=== PATIENT | male | born 1955 | race Caucasian/White ===

== ENCOUNTER 2018-07-15 12:07 | Emergency (ER) | payer MEDICAID ==
[~2018-07-15] VITALS: Ht 167.6 cm; Wt 73.5 kg
[~2018-07-15 12:07] MED LIST: ECO81 PO; METFORMIN500 M1 PO; SYN25 PO; ZOC20 PO
[2018-07-15 12:11] VITALS: Ht 167.6 cm; Wt 73.5 kg
[2018-07-15 12:55] LABS: BASOPHIL % 0.4 % (0-2); PLATELET COUNT 165 x10^3mcL (130-400)
[2018-07-15 13:04] LABS: CALCIUM 8.1 mg/dL (8.5-10.1); CARBON DIOXIDE 24.6 mmol/L (21-32); CHLORIDE SERUM 102 mmol/L (98-107); CREATININE SERUM 0.9 mg/dL (0.7-1.3); GFR1 > 60 mL/min; GLUCOSE SERUM 340 mg/dL (74-106); POTASSIUM SERUM 3.7 mmol/L (3.5-5.1); SODIUM SERUM 138 mmol/L (136-145)
[2018-07-15 13:12] LABS: ALKALINE PHOSPHATASE 64 U/L (46-116); ALT/SGPT 30 U/L (16-63); AST/SGOT 18 U/L (15-37); BILIRUBIN TOTAL 0.53 mg/dL (0.20-1.00); TOTAL PROTEIN, SERUM 6.8 g/dL (6.4-8.2)
[2018-07-15 13:14] LABS: ALBUMIN 2.9 g/dL (3.4-5.0); C REACTIVE PROTEIN 14.5 mg/dL (<=0.9)
[2018-07-15 13:21] LABS: microscopic required? YES; urine erythrocyte 3+ (NEGATIVE)
[2018-07-15 14:05] LABS: ERYTHROCYTE SED RATE 35 mm/hr (0-20)
[2018-07-15 14:14] VITALS: BP 146/86
== END 2018-07-15 14:13 | disposition home or self-care (01) ==
LOC: ED 12:07
PROVIDERS: Specialist
DX: B34.9 Viral infection, unspecified (principal); M79.1 Myalgia; Z90.89 Acquired absence of other organs
CPT/HCPCS: 82962; 87804; J1885; J2405; J7030

== ENCOUNTER 2018-07-16 20:03 | Inpatient (IN) | payer MEDICAID ==
[~2018-07-16] VITALS: Ht 162.6 cm; Wt 74.1 kg
[2018-07-16 20:11] VITALS: Ht 162.6 cm; Wt 74.1 kg
[2018-07-16 22:39] LABS: UA SPECIFIC GRAVITY 1.015 (1.005-1.035); microscopic required? YES; urine erythrocyte 3+ (NEGATIVE)
[2018-07-16 22:42] LABS: CALCIUM 8.2 mg/dL (8.5-10.1); CARBON DIOXIDE 21.3 mmol/L (21-32); CHLORIDE SERUM 98 mmol/L (98-107); GFR1 > 60 mL/min; GLUCOSE SERUM 209 mg/dL (74-106); POTASSIUM SERUM 3.9 mmol/L (3.5-5.1); SODIUM SERUM 133 mmol/L (136-145)
[2018-07-16 22:52] LABS: BASOPHIL % 0.3 % (0-2); PLATELET COUNT 200 x10^3mcL (130-400); RED CELL DISTRIBUTION WIDTH 13.1 % (11.5-14.5)
[2018-07-16 22:55] LABS: ALKALINE PHOSPHATASE 60 U/L (46-116); ALT/SGPT 34 U/L (16-63); AST/SGOT 29 U/L (15-37); BILIRUBIN TOTAL 0.57 mg/dL (0.20-1.00); FREE T4 1.44 ng/dL (0.76-1.46); TOTAL PROTEIN, SERUM 7.2 g/dL (6.4-8.2)
[2018-07-16 22:58] LABS: ALBUMIN 2.9 g/dL (3.4-5.0)
[2018-07-16 23:00] LABS: AMPHETAMINE QUAL UR NONE DETECTED (See below)
[2018-07-17] MEDS ORDERED: IBUPROFEN400 MG (01:09)
[2018-07-17] MEDS ORDERED: SINEMET 25-1001 TAB (01:09)
[2018-07-17 01:21] LABS: MAGNESIUM 1.8 mg/dL (1.8-2.4)
[2018-07-17 01:22] LABS: CHOLESTEROL/HDL RATIO 2.8
[2018-07-17 01:41] VITALS: BP 128/89
[2018-07-17 04:28] LABS: BASOPHIL % 0.5 % (0-2); PLATELET COUNT 168 x10^3mcL (130-400); RED CELL DISTRIBUTION WIDTH 13.3 % (11.5-14.5)
[2018-07-17 04:40] LABS: CALCIUM 7.8 mg/dL (8.5-10.1); CHLORIDE SERUM 104 mmol/L (98-107); CREATININE SERUM 0.8 mg/dL (0.7-1.3); GFR1 > 60 mL/min; GLUCOSE SERUM 192 mg/dL (74-106); POTASSIUM SERUM 4.1 mmol/L (3.5-5.1); SODIUM SERUM 139 mmol/L (136-145)
[2018-07-17 04:47] VITALS: BP 122/72
[2018-07-17 08:29] VITALS: BP 124/78
[2018-07-17 16:56] VITALS: BP 160/89
[2018-07-17 19:56] VITALS: BP 140/84
[2018-07-18 05:28] VITALS: BP 115/73
[2018-07-18 06:36] LABS: CALCIUM 8.1 mg/dL (8.5-10.1); CARBON DIOXIDE 25.7 mmol/L (21-32); CHLORIDE SERUM 102 mmol/L (98-107); CREATININE SERUM 0.8 mg/dL (0.7-1.3); GFR1 > 60 mL/min; GLUCOSE SERUM 120 mg/dL (74-106); MAGNESIUM 1.9 mg/dL (1.8-2.4); PHOSPHOROUS 3.4 mg/dL (2.5-4.9); POTASSIUM SERUM 3.7 mmol/L (3.5-5.1); SODIUM SERUM 138 mmol/L (136-145)
[2018-07-18 08:05] LABS: BASOPHIL % 0.4 % (0-2); PLATELET COUNT 216 x10^3mcL (130-400); RED CELL DISTRIBUTION WIDTH 13.4 % (11.5-14.5)
[2018-07-18 08:28] VITALS: BP 116/77
[2018-07-18] MEDS ORDERED: AUGMENTIN 875-1 EACH PO (09:55)
[2018-07-18 13:46] VITALS: BP 116/77
== END 2018-07-18 14:28 | disposition home or self-care (01) | DRG 720 ==
LOC: ED 20:03 → DU 07-17 00:18 → MU 07-17 00:18 → ED 07-17 00:18 → DU 07-17 00:29 → MU 07-17 02:32
PROVIDERS: Emergency Medicine; Internal Medicine
DX: A41.9 Sepsis, unspecified organism (principal); N17.0 Acute kidney failure with tubular necrosis; J69.0 Pneumonitis due to inhalation of food and vomit; G93.41 Metabolic encephalopathy; E44.0 Moderate protein-calorie malnutrition; D68.69 Other thrombophilia; E11.65 Type 2 diabetes mellitus with hyperglycemia; G20 Parkinson's disease; G89.29 Other chronic pain; M54.9 Dorsalgia, unspecified; R80.9 Proteinuria, unspecified; Z79.82 Long term (current) use of aspirin; Z68.28 Body mass index [BMI] 28.0-28.9, adult; Z79.84 Long term (current) use of oral hypoglycemic drugs
CPT/HCPCS: 82962; 83880; 84439; G0480; J0456; J0696; J2543; J3490; J7030; J7620; Q0092